=== PATIENT | female | born 1990 | race Hispanic/Latino ===

== ENCOUNTER 2017-12-26 02:38 | Emergency (ER) | payer SELFPAY | END 2017-12-26 03:00 | disposition home or self-care (01) | LOC: EDH 02:38 | DX: H66.91 Otitis media, unspecified, right ear (principal); J45.909 Unspecified asthma, uncomplicated ==

== ENCOUNTER 2019-12-13 01:52 | Emergency (ER) | payer SELFPAY ==
[2019-12-13] MEDS ORDERED: IBUPROFEN 200 MG TAB ONE (02:59)
[2019-12-13] MEDS ORDERED: IBUPROFEN 400 MG TABLET ONE (02:59)
[2019-12-13] MEDS ORDERED: ACETAMINOPHEN 325 MG TAB ONE (03:30)
== END 2019-12-13 04:39 | disposition home or self-care (01) ==
LOC: EDH 01:52
DX: J06.9 Acute upper respiratory infection, unspecified (principal); R11.2 Nausea with vomiting, unspecified; J45.909 Unspecified asthma, uncomplicated; Z90.710 Acquired absence of both cervix and uterus
CPT/HCPCS: 87804

== ENCOUNTER 2021-05-07 12:32 | Emergency (ER) | payer MEDICAID ==
[~2021-05-07] VITALS: Ht 154.9 cm; Wt 98.0 kg
[2021-05-07] MEDS ORDERED: ALBUHFA IH (13:51)
[2021-05-07] MEDS ORDERED: D-ME1POW16 PO (13:51)
[2021-05-07] MEDS ORDERED: FLUT1DIS IH (13:51)
[2021-05-07] MEDS ORDERED: OSEL75 PO (13:59)
[2021-05-07 14:22] VITALS: BP 132/86
== END 2021-05-07 14:24 | disposition home or self-care (01) ==
LOC: EDH 12:32
DX: U07.1 COVID-19 (principal); B34.9 Viral infection, unspecified; J45.909 Unspecified asthma, uncomplicated; Z79.51 Long term (current) use of inhaled steroids; Z79.899 Other long term (current) drug therapy
CPT/HCPCS: 71045; 87426; 87804; 87880

== ENCOUNTER 2021-05-12 11:30 | Emergency (ER) | payer MEDICAID ==
[~2021-05-12] VITALS: Ht 157.5 cm; Wt 98.0 kg
[~2021-05-12 11:30] MED LIST: ALBUHFA IH; D-ME1POW16 PO; FLUT1DIS IH; OSEL75 PO
[2021-05-12] MEDS ORDERED: ACETAMINOPHEN 500 MG TABLET PO SCH (12:00)
[2021-05-12 12:09] LABS: HEMATOCRIT 41.3 % (36-48); MEAN CORPUSCULAR HEMOGLOBIN 29.1 pg (27.0-33.0); MEAN CORPUSCULAR HGB CONC 33.4 g/dL (32.0-36.0); MEAN CORPUSCULAR VOLUME 87.1 fL (79-99); PLATELET COUNT (AUTO) 248 K/uL (130-400); RED BLOOD CELL COUNT(AUTO) 4.74 MIL/uL (4.00-5.50); WHITE BLOOD COUNT (AUTO) 3.7 K/uL (4.8-10.8)
[2021-05-12 12:18] LABS: CREATININE 0.8 mg/dL (0.5-1.5); POTASSIUM 3.5 mmol/L (3.5-5.1)
[2021-05-12 12:23] LABS: ALBUMIN 3.3 g/dL (3.5-5.0); BILIRUBIN,TOTAL 0.4 mg/dL (0.2-1.0); CRP QUANTITATIVE 76.4 mg/L (0.00-9.0); TOTAL PROTEIN, SERUM 7.8 g/dL (6.0-8.3)
[2021-05-12 12:27] VITALS: BP 135/78
[2021-05-12] MEDS ORDERED: ACETAMINOPHEN WITH CODEINE 1 TAB TAB PO ONE (12:30)
[2021-05-12] MEDS ORDERED: ONDANSETRON ODT 4MG TAB SL SCH (12:30)
[2021-05-12] MEDS ORDERED: ALBUTEROL INHALER 90MCG/INH IH PRN (12:30)
[2021-05-12 12:55] LABS: EOSINOPHILS % (MANUAL) 1 % (1-6); LYMPHOCYTES % (MANUAL) 22 % (22-44); MAN.DIFF COMMENT-IMPRESSION MANUAL DIFFERENTIAL; MONOCYTES % (MANUAL) 6 % (2-9); PLATELET MORPHOLOGY COMMENT ADEQUATE; SEGMENTED NEUTROPHILS % 71 % (40-70)
[2021-05-12] MEDS ORDERED: FLUT1DIS IH (12:55)
[2021-05-12] MEDS ORDERED: ALBUHFA IH (12:55)
[2021-05-12] MEDS ORDERED: ONDA4TAB10 PO (12:55)
[2021-05-12] MEDS ORDERED: D-ME1POW16 PO (12:55)
== END 2021-05-12 13:15 | disposition home or self-care (01) ==
LOC: EDH 11:30
DX: U07.1 COVID-19 (principal); B34.9 Viral infection, unspecified; Z79.51 Long term (current) use of inhaled steroids; Z79.899 Other long term (current) drug therapy
CPT/HCPCS: 36415; 71045; 80053; 83605; 85025; 86140; 87040 ×2; 87635; 87804 ×2; 87880; 99284; C9803

== ENCOUNTER 2021-06-07 08:42 | Emergency (ER) | payer MEDICAID ==
[~2021-06-07] VITALS: Ht 157.5 cm; Wt 117.9 kg
[~2021-06-07 08:42] MED LIST changes: +ONDA4TAB10 PO
[2021-06-07 09:00] VITALS: BP 151/107
[2021-06-07] MEDS ORDERED: KETOROLAC 30MG VIAL (30MG/ML) IVP SCH (09:30)
[2021-06-07] MEDS ORDERED: ONDANSETRON 4MG INJ IVP SCH (09:30)
[2021-06-07 09:31] LABS: BASOPHILS % (AUTO) 0.1 % (0.0-5.0); EOSINOPHILS % (AUTO) 2.6 % (0.0-8.0); LYMPHOCYTES % (AUTO) 24.6 % (21.0-51.0); MEAN CORPUSCULAR HEMOGLOBIN 29.5 pg (27.0-33.0); MEAN CORPUSCULAR HGB CONC 33.2 g/dL (32.0-36.0); MEAN CORPUSCULAR VOLUME 88.7 fL (79-99); MONOCYTES % (AUTO) 8.7 % (3.0-13.0); PLATELET COUNT (AUTO) 257 K/uL (130-400); RED BLOOD CELL COUNT(AUTO) 4.17 MIL/uL (4.00-5.50); RED CELL DISTRIBUTION WIDTH 13.3 % (11.0-15.5); WHITE BLOOD COUNT (AUTO) 8.1 K/uL (4.8-10.8)
[2021-06-07 10:17] LABS: ALBUMIN 3.1 g/dL (3.5-5.0); BILIRUBIN,TOTAL 0.3 mg/dL (0.2-1.0); CREATININE 0.7 mg/dL (0.5-1.5); POTASSIUM 4.2 mmol/L (3.5-5.1)
[2021-06-07] MEDS ORDERED: NAPR-1179 PO (12:26)
[2021-06-07] MEDS ORDERED: FAMO-136 PO (12:26)
== END 2021-06-07 12:56 | disposition home or self-care (01) ==
LOC: EDH 08:42
DX: K80.70 Calculus of gallbladder and bile duct without cholecystitis without obstruction (principal); R11.0 Nausea; Z98.51 Tubal ligation status
CPT/HCPCS: 36415; 71045; 76705; 80053; 82150; 83690; 85025; 93005; 96374; 96375; 99285; J1885; J2405

== ENCOUNTER 2021-12-16 14:04 | Emergency (ER) | payer MEDICAID ==
[~2021-12-16] VITALS: Ht 152.4 cm; Wt 108.9 kg
[~2021-12-16 14:04] MED LIST changes: +FAMO-136 PO; +NAPR-1179 PO
[2021-12-16] MEDS ORDERED: IBUPROFEN 800 MG TAB ONE (15:07)
[2021-12-16] MEDS ORDERED: IBUPROFEN 800 MG TAB PO ONE (15:30)
[2021-12-16] MEDS ORDERED: DICL50TA9 PO (17:16)
[2021-12-16 17:58] VITALS: BP 136/84
== END 2021-12-16 17:58 | disposition home or self-care (01) ==
LOC: EDH 14:04
DX: M25.561 Pain in right knee (principal); Z79.899 Other long term (current) drug therapy; Z98.890 Other specified postprocedural states
CPT/HCPCS: 73562

== ENCOUNTER 2022-04-16 02:22 | Emergency (ER) | payer MEDICAID ==
[~2022-04-16] VITALS: Ht 154.9 cm; Wt 137.0 kg
[~2022-04-16 02:22] MED LIST changes: +DICL50TA9 PO
[2022-04-16 02:57] LABS: BASOPHILS % (AUTO) 0.5 % (0.0-5.0); EOSINOPHILS % (AUTO) 4.4 % (0.0-8.0); HEMATOCRIT 41.4 % (36-48); LYMPHOCYTES % (AUTO) 29.4 % (21.0-51.0); MEAN CORPUSCULAR HEMOGLOBIN 29.1 pg (27.0-33.0); MEAN CORPUSCULAR HGB CONC 33.6 g/dL (32.0-36.0); MEAN CORPUSCULAR VOLUME 86.6 fL (79-99); MONOCYTES % (AUTO) 7.4 % (3.0-13.0); NEUTROPHILS % (AUTO) 56.1 % (40.0-77.0); PLATELET COUNT (AUTO) 405 K/uL (130-400); RED BLOOD CELL COUNT(AUTO) 4.78 MIL/uL (4.00-5.50); RED CELL DISTRIBUTION WIDTH 12.9 % (11.0-15.5); WHITE BLOOD COUNT (AUTO) 10.1 K/uL (4.8-10.8)
[2022-04-16 02:58] LABS: APPEARANCE,URINE CLEAR (CLEAR); BILIRUBIN,URINE NEGATIVE (NEGATIVE); COLOR,URINE YELLOW (YELLOW); GLUCOSE, URINE (UA) NEGATIVE (NEGATIVE); KETONES,URINE NEGATIVE (NEGATIVE); LEUKOCYTE ESTERASE ,URINE NEGATIVE (NEGATIVE); NITRATE,URINE NEGATIVE (NEGATIVE); OCCULT BLOOD,URINE TRACE-INTACT (NEGATIVE); PROTEIN,URINE NEGATIVE (NEGATIVE); UROBILINOGEN,URINE 0.2 mg/dL (0.2-1.0)
[2022-04-16 03:00] LABS: HCG,QUALITATIVE URINE NEGATIVE (NEGATIVE)
[2022-04-16 03:07] LABS: CREATININE 0.9 mg/dL (0.5-1.5); POTASSIUM 3.8 mmol/L (3.5-5.1)
[2022-04-16 03:11] LABS: ALBUMIN 3.3 g/dL (3.5-5.0); TOTAL PROTEIN, SERUM 7.7 g/dL (6.0-8.3)
[2022-04-16 03:16] LABS: BACTERIA,URINE Few /HPF (None Seen); RBC,URINE 0-1 /HPF (0-1); WBC,URINE None Seen /HPF (0-1)
[2022-04-16 03:17] LABS: SQUAMOUS EPITHELIAL CELL,UR Few /HPF (0-2)
[2022-04-16] MEDS ORDERED: ONDANSETRON 4MG INJ IVP ONE (03:30)
[2022-04-16] MEDS ORDERED: 0.9%NACL 1000ML 1,000 ML IV ONE (03:30)
[2022-04-16] MEDS ORDERED: KETOROLAC 30MG VIAL (30MG/ML) IVP ONE (03:30)
[2022-04-16 04:02] VITALS: BP 143/85
[2022-04-16] MEDS ORDERED: KETO10 PO (04:05)
== END 2022-04-16 04:17 | disposition home or self-care (01) ==
LOC: EDH 02:22
DX: K80.70 Calculus of gallbladder and bile duct without cholecystitis without obstruction (principal); Z79.899 Other long term (current) drug therapy; Z98.890 Other specified postprocedural states
CPT/HCPCS: 99284; 96374; 76705; 96361; 96375; 80053; 83690; 85025; 81001; 81025; 36415; J7030; J2405; J1885

== ENCOUNTER 2023-11-23 20:14 | Emergency (ER) | payer MEDICAID, OTHER ==
[~2023-11-23] VITALS: Ht 154.9 cm; Wt 127.0 kg
[~2023-11-23 20:14] MED LIST changes: +KETO10 PO
[2023-11-23 21:38] VITALS: TEMP 102.7
[2023-11-23] MEDS: ACETAMINOPHEN 500 MG TABLET PO ONE (21:38)
[2023-11-23 21:55] LABS: RAPID GROUP A STREP negative (NEGATIVE)
[2023-11-23 22:06] LABS: INFLUENZA TYPE A Negative For Type A (NEGATIVE); INFLUENZA TYPE B Negative For Type B (NEGATIVE)
[2023-11-23 22:10] LABS: SARS-CoV-2, RNA, NAAT POSITIVE SARS CoV-2 (NEGATIVE)
[2023-11-23] MEDS ORDERED: BENZ-39 PO (22:21)
[2023-11-23] MEDS ORDERED: AZIT250T9 PO (22:21)
[2023-11-23] MEDS ORDERED: IBUP-2077 PO (22:21)
[2023-11-23 22:30] VITALS: BP 132/94; PULSE 89; RESP 18; O2SAT 99
== END 2023-11-23 22:29 | disposition home or self-care (01) ==
LOC: EDH 20:14
DX: U07.1 COVID-19 (principal); Z79.899 Other long term (current) drug therapy; Z98.890 Other specified postprocedural states
CPT/HCPCS: 81025; 87635; 87804; 87880